=== PATIENT | male | born 1970 | race Caucasian/White ===

== ENCOUNTER 2021-06-06 10:29 | Emergency (ER) | payer BC ==
[~2021-06-06] VITALS: Ht 180.3 cm; Wt 111.0 kg
[2021-06-06] MEDS ORDERED: KETOROLAC 60MG/2ML VIAL IM ONE (11:00)
[2021-06-06 11:24] VITALS: BP 139/85
[2021-06-06] MEDS ORDERED: AMOX-424 MT (11:28)
[2021-06-06] MEDS ORDERED: IBUP-2029 MT (11:28)
[2021-06-06] MEDS ORDERED: BENZ11.95 TOP (11:28)
== END 2021-06-06 11:45 | disposition home or self-care (01) ==
LOC: ER 10:29
DX: K04.7 Periapical abscess without sinus (principal); Z79.899 Other long term (current) drug therapy
CPT/HCPCS: 96372; 99283; J1885